=== PATIENT | male | born 1965 ===

== ENCOUNTER 2025-01-21 15:35 | Emergency (ER) | payer OTHER, SELFPAY ==
--- OUTSIDE RECORDS SUMMARY | 2025-01-21 15:37 | XMS_ITS | Clinical Summary ---
Author Organization 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 Nov 2024: Dr. Cabral did left knee cortisone injection. Elevated blood pressure read ing without diagnosis of hypertension 06/13/2018 Headache Overview (03/22/2021): MRI normal 06/30/2020. Saw neurologist. Overweight Resolved Problems Problem Noted Date Diagnosed Date Resolved Date Routine adult health maintenance 01/26/2016 03/27/2018 Overview (01/26/2016): Colonoscopy 12/2015 hyperplastic polyp repeat in 10 years EXAMINATION, ROUTINE MEDICAL 08/07/1999 03/27/2018 PHARYNGITIS, ACUTE 08/07/1999 8 Encounters Date Type Department Care Team Description 01/12/2025 Orders Only [facility] Scanner 1 scan: (1-Ord) TAREEN DERMATOLOGY, EXCISION , 01/12/2025 01/11/2025 Telephone [facility] [address] [place], [place] [id number] Oren Ledezma MD other (FYI) 12/16/2024 Orders Only [facility] Scanner 1 scan: (1-Ord) TAREEN DERMATOLOGY, RT SUPERIOR FRONTAL SCALP, 12/16/2024 12/16/2024 Orders Only [facility] Scanner 1 scan: (1-Ord) TAREEN DERMATOLOGY, SHAVE BIOPSY, 12/16/2024 12/08/2024 1:25 PM CDT Office Visit [facility] [address] [facility] [address] Bright Cabral MD Musculoskeletal Problem (Follow-up LEFT Knee ~ DOO 05/2024/Review MRI ) 12/07/2024 Travel 11/06/2024 3:30 PM CDT Ancillary Procedure [facility] [address] [facility] [address] 11/06/2024 Travel 11/04/2024 Travel from Last 3 Months Immunizations Immunization Administration Dates Next Due Influenza, IIV3 (Age >=3 years) 04/09/2003 Tdap 12/24/2020,03/11/2014 Family History Medical History Relation Name Comments Diabetes Father Hypertension Father Cancer-colon Neg. 1 Cancer-prostate Neg. 2 Heart Disease Neg. 3 Relation Name Status Comments Father Neg. 1 Neg. 2 Neg. 3 Social History Tobacco Use Types Packs/Day Years Used Date Smoking Tobacco: Never Smokeless Tobacco: Never Tobacco Cessation:Counseling Given: Yes Alcohol Use Standard Drinks/Week Comments Yes 0 (1 standard drink = 0.6 oz pur e alcohol) 1 beer per week. PHQ-2 Answer Date Recorded PHQ-2 TOTAL SCORE 0 03/22/2021 Social Connections Answer Date Recorded Do you often feel lonely or isolated from those around you? 0 10/19/2024 Financial Resource Strain Answer Date R ecorded Difficulty of Paying Living Expenses 3 10/19/2024 Difficulty of Paying Living Expenses Not on file 10/19/2024 Food Insecurity Answer Date Recorded Do you worry your food will run out before you are able to buy more? 1 10/19/2024 Transportation Needs Answer Date Record ed Does lack of transportation keep you from medica l appointments? 1 10/19/2024 Does lack of transportation keep you from work, meetings or getting things that you need? 1 10/19/2024 Housing Stability Answer Date Recorded What is your housing situation today? 1 10/19/2024 Utilities Answer Date Recorded Do you have trouble paying f or utilities (for example, heat, electricity, water, phone)? 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 Not on file Not on file Not on file Obstetrics History Last Filed Vital Signs Vital Sign Reading Time Taken Comments Blood Pressure 135/95 12/08/2024 1:25 PM CDT Pulse 79 12/08/2024 1:25 PM CDT Temperature 36.8 C (98.3 F) 02/03/2020 3:13 PM CDT Respiratory Rate 16 02/23/2015 10:0 4 AM CDT Oxygen Saturation 98% 12/08/2024 1:25 PM CDT Inhaled Oxygen Concentration - - Weight 105.1 kg (231 lb 12.8 oz) 12/08/2024 1:25 PM CDT Height 184.2 cm (6' 0.5) 09/01/2024 1:57 PM CDT Body Mass Index 31.01 09/01/2024 1:57 PM CDT Plan of Treatment Upcoming Encounters Date Type Department Care Team (Late st Contact Info) Description 02/24/2025 10:30 AM CDT Office Visit [facility] [address] [place] [address] Oren Ledezma MD [address] [place] [address] Health Maintenance Due Date Last Done Comments HIV for age 15-65 1980 Hepatitis B series for 19+ ( 1 of 3 - 19+ 3-dose series) 1984 Pneumococcal series for age 50+ (1 of 1 - PCV) 08/26/2015 Zoster (shingles) series for age 50+ (1 of 2) 08/26/2015 Depression screening for age 12+ 03/22/2022 03/22/2021, 04/01/2019, 03/27/2018, Additional history exists COVID-19 vaccine series ( season) 2024 08/05/2020 Influenza Vaccine (#1) 2024 04/09/2003 BMI (ht and wt on same day) for age 18+ 09/01/2025 09/01/2024, 03/22/2021, 02/03/2020, Additional history exists Colonoscopy through age 75 01/24/2026 01/25/2016, Lipids for age 45-75 03/22/2026 03/22/2021, 04/01/2019, 05/28/2018, Additional history exists Tetanus booster 12/24/2030 12/24/2020, 03/11/2014 RSV vaccine for adults or (1 - 1-dose 75+ series) 2040 Hepatitis C screening for ag e 18-79 Completed 03/22/2021 Procedures Procedure Name Priority Date/Time Associated Diagnosis Comments SCAN-OPERATIVE/PROCE DURE REPORT 01/12/2025 12:00 AM CDT SCAN-PATHOLOGY REPORT 12/16/2024 12:00 AM CDT SCAN-OPERATIVE/PROCE DURE REPORT 12/16/2024 12:00 AM CDT MR KNEE LEFT WO Routine 11/06/2024 4:15 PM CDT Chronic pain of left knee ANTI HCV Routine 03/22/2021 4:12 PM PRE PRESS MANAGER Need for hepatitis C screening test LIPID PANEL W REFLEX MEASURED LDL Routine 03/22/2021 4:12 PM PRE PRESS MANAGER Lipid screening COLONOSCOPY 01/25/2016 9:09 AM CDT from Last 3 Months or Most Recently Relevant to Health Maintenance Results * SCAN-OPERATIVE/PROCEDURE REPORT (01/12/2025 12:00 AM CDT) us Scanner OTHER Final Result * SCAN-OPERATIVE/PROCEDURE REPORT (12/16/2024 12:00 AM CDT) us Scanner OTHER Final Result * SCAN-PATHOLOGY REPORT (12/16/2024 12:00 AM CDT) us Scanner OTHER Final Result * MR KNEE LEFT WO (11/06/2024 4:15 PM CDT) Anatomical Region Laterality Modality KNEE L Magnetic Resonan ce 11/09/2024 11:0 2 AM CDT Impressions 11/09/2024 11:02 AM CDT 1. Jones volume loss in the body of the medial meniscus with displaced flap fragment extending into the medial tibial gutter. 2. Gbgo-ai-pxixynny chondromalacia centrally in the medial compartment and focal mild chondromalacia in the far posterior aspect of the medial femoral condyle. 3. Mild chondromalacia posteriorly in the lateral compartment. 4. Small undermining full-thickness chondral fissure in the medial patellar facet with additional dyrs-rn-cwturjfo chondromalacia. 5. Small knee joint effusion with minimal synovitis. Moderate sized partially ruptured popliteal cyst. 6. Benign bone island in the medial femoral condyle. Dictated by Pablo Sullivan MD @ 11/09/2024 11:02:06 AM (Electronically Signed) Narrative 11/09/2024 11:02 AM CDT For Patients: As a result of the Century Cures Act, medical imaging exams and procedure reports are released immediately into your electronic medical record. You may view this report before your referring provider. If you have questions, please contact your health care provider. EXAM: MRI OF THE LEFT KNEE, WITHOUT CONTRAST CLINICAL INDICATION: Four-month history of knee pain most prominent medially. Intermittent catching and popping sensation. COMPARISON PLAIN FILMS: 09/01/2024. COMPARISON CROSS-SECTIONAL IMAGING STUDIES: None available at time of interpretation. TECHNICAL: Axial, sagittal and coronal T1, PD, PD FS and T2 FS images. Knee coil. FINDINGS: MEDIAL COMPARTMENT: Medial Meniscus: Tearing and volume loss in the free edge and tibial articular surface of the body of the medial meniscus with small displaced flap fragment extending into the medial tibial gutter. Loss of hoop stress with peripheral extrusion of the body of the medial meniscus. Articular Cartilage: Moderate to near full-thickness chondral thinning centrally in the medial femoral condyle (grade 3). Mild chondral fraying and thinning centrally in the tibia (grade 2). Mild chondral fissuring in the far posterior aspect of the medial femoral condyle (grade 2). - LATERAL COMPARTMENT: Lateral Meniscus: Normal size and morphology without tear. Articular Cartilage: Mild chondral fissuring posteriorly in the lateral compartment (grade 2). - PATELLOFEMORAL COMPARTMENT: Articular Cartilage: 0.3 cm full-thickness undermining chondral fissure in the medial patellar facet with subchondral edema and subchondral cystic change (grade 4). Additional mild to moderate chondral thinning and fissuring in the medial patellar facet (grade 2-3). The trochlear groove articular cartilage is intact. - CRUCIATE LIGAMENTS: Anterior Cruciate Ligament: Normal. Posterior Cruciate Ligament: Normal. - MEDIAL COLLATERAL LIGAMENT AND POSTEROMEDIAL CORNER COMPLEX: Medial Collateral Ligament: Normal. Medial Head of the Gastrocnemius and Semimembranosus Tendons: Normal. - LATERAL COLLATERAL LIGAMENT COMPLEX AND POSTEROLATERAL CORNER COMPLEX: Fibular Collateral Ligament: Normal. Distal Biceps Femoris Tendon Complex: Normal. Iliotibial Band: Normal. Popliteus Tendon: Normal. Posterolateral Corner Capsule: Normal. - EXTENSOR MECHANISM: Distal Quadriceps Tendon: Normal. Patellar Tendon: Normal. Medial Patellar Retinaculum and Medial Patellofemoral Ligament: Normal. Lateral Patellar Retinaculum: Normal. Normal patellar alignment. No patella sascha. Normal trochlear depth. Normal lateral trochlear inclination. - JOINT SPACE: Effusion: Small knee joint effusion. Minimal synovitis. Moderate-sized partially ruptured popliteal cyst. Joint Bodies: None seen. - OSSEOUS STRUCTURES: Benign bone island in the medial femoral condyle. No marrow infiltrating process. - PERIARTICULAR SOFT TISSUES: Periarticular Cysts or Ganglia: None. Bursae: No prepatellar, superficial infrapatellar, deep infrapatellar, pes anserinus or semimembranosus/MCL bursitis. Musculature: No muscle atrophy or muscle edema. Subcutaneous and Soft Tissues: Small area of artifact near the lateral aspect of the tibial tubercle is likely due to a tiny metallic foreign body not visible radiographically. Neurovascular Structures: Normal. Procedure Note Pablo Sullivan MD - 11/09/2024 For Patients: As a result of the Century Cures Act, medical imagingexams and procedure reports are released immediately into your electronicmedical record. You may view this report before your referring provider.If you have questions, please contact your health care provider. EXAM: MRI OF THE LEFT KNEE, WITHOUT CONTRAST CLINICAL INDICATION: Four-month history of knee pain most prominent medially. Intermittentcatching and popping sensation. COMPARISON PLAIN FILMS: 09/01/2024. COMPARISON CROSS-SECTIONAL IMAGING STUDIES: None available at time of interpretation. TECHNICAL: Axial, sagittal and coronal T1, PD, PD FS and T2 FS images. Knee coil. FINDINGS: MEDIAL COMPARTMENT: Medial Meniscus: Tearing and volume loss in the free edge and tibialarticular surface of the body of the medial meniscus with small displacedflap fragment extending into the medial tibial gutter. Loss of hoop stresswith peripheral extrusion of the body of the medial meniscus. Articular Cartilage: Moderate to near full-thickness chondral thinningcentrally in the medial femoral condyle (grade 3). Mild chondral frayingand thinning centrally in the tibia (grade 2). Mild chondral fissuring inthe far posterior aspect of the medial femoral condyle (grade 2). - LATERAL COMPARTMENT: Lateral Meniscus: Normal size and morphology without tear. Articular Cartilage: Mild chondral fissuring posteriorly in the lateralcompartment (grade 2). - PATELLOFEMORAL COMPARTMENT: Articular Cartilage: 0.3 cm full-thickness undermining chondral fissure inthe medial patellar facet with subchondral edema and subchondral cysticchange (grade 4). Additional mild to moderate chondral thinning andfissuring in the medial patellar facet (grade 2-3). The trochlear groovearticular cartilage is intact. - CRUCIATE LIGAMENTS: Anterior Cruciate Ligament: Normal. Posterior Cruciate Ligament: Normal. - MEDIAL COLLATERAL LIGAMENT AND POSTEROMEDIAL CORNER COMPLEX: Medial Collateral Ligament: Normal. Medial Head of the Gastrocnemius and Semimembranosus Tendons: Normal. - LATERAL COLLATERAL LIGAMENT COMPLEX AND POSTEROLATERAL CORNER COMPLEX: Fibular Collateral Ligament: Normal. Distal Biceps Femoris Tendon Complex: Normal. Iliotibial Band: Normal. Popliteus Tendon: Normal. Posterolateral Corner Capsule: Normal. - EXTENSOR MECHANISM: Distal Quadriceps Tendon: Normal. Patellar Tendon: Normal. Medial Patellar Retinaculum and Medial Patellofemoral Ligament: Normal. Lateral Patellar Retinaculum: Normal. Normal patellar alignment. No patella sascha. Normal trochlear depth.Normal lateral trochlear inclination. - JOINT SPACE: Effusion: Small knee joint effusion. Minimal synovitis. Moderate-sizedpartially ruptured popliteal cyst. Joint Bodies: None seen. - OSSEOUS STRUCTURES: Benign bone island in the medial femoral condyle. No marrow infiltratingprocess. - PERIARTICULAR SOFT TISSUES: Periarticular Cysts or Ganglia: None. Bursae: No prepatellar, superficial infrapatellar, deep infrapatellar, pesanserinus or semimembranosus/MCL bursitis. Musculature: No muscle atrophy or muscle edema. Subcutaneous and Soft Tissues: Small area of artifact near the lateralaspect of the tibial tubercle is likely due to a tiny metallic foreignbody not visible radiographically. Neurovascular Structures: Normal. IMPRESSION: 1. Jones volume loss in the body of the medial meniscus with displacedflap fragment extending into the medial tibial gutter. 2. Qxgd-ay-ncdqfkhf chondromalacia centrally in the medial compartment andfocal mild chondromalacia in the far posterior aspect of the medialfemoral condyle. 3. Mild chondromalacia posteriorly in the lateral compartment. 4. Small undermining full-thickness chondral fissure in the medialpatellar facet with additional vfjw-bi-mddtflgo chondromalacia. 5. Small knee joint effusion with minimal synovitis. Moderate sizedpartially ruptured popliteal cyst. 6. Benign bone island in the medial femoral condyle. Dictated by Pablo Sullivan MD @ 11/09/2024 11:02:06 AM (Electronically Signed) us Bright Cabral MD MR Final Res ult * LIPID PANEL W REFLEX MEASURED LDL (03/22/2021 4:12 PM PRE PRESS MANAGER) CHOLESTEROL,TOTAL 198 100 - 199 mg/dL 03/22/2021 10:43 PM PRE PRESS MANAGER [facility] TRIGLYCERIDES 58 <150 mg/dL 03/22/2021 10:43 PM PRE PRESS MANAGER [facility] HDL CHOLESTEROL 62 >40 mg/dL 10:43 PM PRE PRESS MANAGER [facility] NON-HDL CHOLESTEROL 136 <145 mg/dl 03/22/2021 10:43 PM PRE PRESS MANAGER [facility] CHOL/HDL RATIO 3.19 <4.50 03/22/2021 10:43 PM PRE PRESS MANAGER [facility] LDL CHOLESTEROL 124 <=130 mg/dL 03/22/2021 10:43 PM PRE PRESS MANAGER [facility] VLDL CHOLESTEROL 12 <=30 mg/dL 03/22/2021 10:43 PM PRE PRESS MANAGER [facility] PROVIDER ORDERED STATUS RANDOM 03/22/2021 10:43 PM PRE PRESS MANAGER [facility] Blood BLOOD SPECIMEN / Unknown Venipuncture / Unknown 03/22/2021 4:12 PM PRE PRESS MANAGER 03/22/2021 4:13 PM PRE PRESS MANAGER us Oren Ledezma MD CHEMISTRY Final Result [facility] [address] [place] [address], [place] * ANTI HCV (03/22/2021 4:12 PM PRE PRESS MANAGER) HEPATITIS C ANTIBODY Non-React ismael Non-React ismael 03/22/2021 10:56 PM PRE PRESS MANAGER [facility] Comment:Antibodies to HCV no t detected; does not exclude the possibility of exposure to HCV. Blood BLOOD SPECIMEN / Unknown Venipuncture / Unknown 03/22/2021 4:12 PM PRE PRESS MANAGER 03/22/2021 4:13 PM PRE PRESS MANAGER us Oren Ledezma MD SEND OUTS Final Result [facility] [address] [place] [address], [place] * COLONOSCOPY (01/25/2016 9:09 AM CDT) 01/25/2016 9:09 AM CDT Narrative 01/25/2016 9:09 AM CDT Patient Name: Ramon Alvarenga Date: 01/25/2016 Gender: Male Date of : 1965 Admit Type: Outpatient Procedure: Colonoscopy Proceduralist: Diogenes Gee MD Indications/Pre-Op Diagnosis: Screening for colorectal malignant neoplasm, This is the patient's first colonoscopy Medications: Fentanyl 100 micrograms IV, Midazolam 4 mg IV, The level of sedation administered was moderate Procedure Description: The patient had risks, benefits and alternatives explained to and gave informed consent. The patient had a stable cardiopulmonary status and judged an adequate candidate for conscious sedation. The PCF-Q290AL [id number] was passed through the anus and advanced to the cecum, identified by appendiceal orifice and ileocecal valve. The colonoscopy was performed without difficulty. The patient tolerated the procedure well. The quality of the bowel preparation was excellent. The ileocecal valve, appendiceal orifice, and rectum were photographed. Complications: No immediate complications. Estimated Blood Loss & Specimen: Estimated blood loss: none. Specimen collected - Yes and sent to Laboratory Findings: The perianal and digital rectal examinations were normal. Two sessile polyps were found in the sigmoid colon. The polyps were 2 mm in size. These polyps were removed with a cold snare. Resection and retrieval were complete. No additional abnormalities were found on retroflexion. Impressions/Post-Op Diagnosis: - Two 2 mm polyps in the sigmoid colon, removed with a cold snare. Resected and retrieved. Recommendation: - Patient has a contact number available for emergencies. The signs and symptoms of potential delayed complications were discussed with the patient. Return to normal activities tomorrow. Written discharge instructions were provided to the patient. - Resume previous diet. - Continue present medications. - Await pathology results. - Repeat colonoscopy is recommended. The colonoscopy date will be determined after pathology results from today's exam become available for review. Diogenes Gee MD 01/25/2016 9:50:23 AM This report has been signed electronically. Note Initiated On: 01/25/2016 9:09 AM Procedure Code(s): --- Professional --- 36945, Colonoscopy, flexible; with removal of tumor(s), polyp(s), or other lesion(s) by snare technique Diagnosis Code(s): --- Professional --- Z12.11, Encounter for screening for malignant neoplasm of colon D12.5, Benign neoplasm of sigmoid colon CPT copyright 2015 [employer]. All rights reserved. The codes documented in this report are preliminary and upon batch analyst review may be revised to meet current compliance requirements. Scope In: 9:19:28 AM Scope Withdrawal Time 0 hours 15 minutes 9 seconds Scope Out: 9:40:55 AM Procedure Note Diogenes Gee MD - 01/25/2016 9:50 AM CDT Patient Name: Ramon Laurent Procedure Date: 01/25/2016 Gender: Male Date of : 1965 Admit Type: Outpatient Procedure: Colonoscopy Proceduralist: Diogenes Gee MD Indications/Pre-Op Diagnosis: Screening for colorectal malignant neoplasm, This is the patient's first colonoscopy Medications: Fentanyl 100 micrograms IV, Midazolam 4 mgIV, The level of sedation administered wasmoderate Procedure Description: The patient had risks, benefits and alternatives explained to andgave informed consent. The patient had a stable cardiopulmonary status and judged an adequate candidate for conscious sedation. The [facility]-Q290AL [id number] was passed through the anus and advanced tothe cecum, identified by appendiceal orifice and ileocecal valve. The colonoscopy was performed without difficulty. The patient toleratedthe procedure well. The quality of the bowel preparation was excellent.The ileocecal valve, appendiceal orifice, and rectum were photographed. Complications: No immediate complications. Estimated Blood Loss & Specimen: Estimated blood loss: none. Specimen collected - Yes and sent to Laboratory Findings: The perianal and digital rectal examinations were normal. Two sessile polyps were found in the sigmoid colon. The polyps were 2mm in size. These polyps were removed with a cold snare. Resection and retrieval were complete. No additional abnormalities were found on retroflexion. Impressions/Post-Op Diagnosis: - Two 2 mm polyps in the sigmoid colon, removed with a cold snare. Resected and retrieved. Recommendation: - Patient has a contact number available for emergencies. The signsand symptoms of potential delayed complications were discussed with the patient. Return to normal activities tomorrow. Written discharge instructions were provided to the patient. - Resume previous diet. - Continue present medications. - Await pathology results. - Repeat colonoscopy is recommended. The colonoscopy date will be determined after pathology results from today's exam become available for review. Diogenes Gee MD 01/25/2016 9:50:23 AM This report has been signed electronically. Note Initiated On: 01/25/2016 9:09 AM Procedure Code(s): --- Professional --- 97499, Colonoscopy, flexible; with removalof tumor(s), polyp(s), or other lesion(s) bysnare technique Diagnosis Code(s): --- Professional --- Z12.11, Encounter for screening formalignant neoplasm of colon D12.5, Benign neoplasm of sigmoid colon CPT copyright 2015 [employer]. All rights reserved. The codes documented in this report are preliminary and upon batch analyst reviewmay be revised to meet current compliance requirements. Scope In: 9:19:28 AM Scope Withdrawal Time 0 hours 15 minutes 9 seconds Scope Out: 9:40:55 AM us Diogenes Gee MD PROCEDURE ORD Final Res ult from Last 3 Months or Most Recently Relevant to Health Maintenance Insurance [employer] Care Teams Managing Jeweler Relationship Specialty Start Date End Date Oren Ledezma MD [address] [place] [address] PCP - General 11/23/05
[2025-01-21 15:41] VITALS: BP 152/92; PULSE 80; RESP 20; TEMP 36.5; O2SAT 97; BMI 30.6
--- NOTE | 2025-01-21 16:10 | ED_ITS ---
HPI - General Adult General Chief complaint: Laceration/Wound Stated complaint: R pointer finger cut off with saw Time Seen by Provider: 01/21/25 15:56 Source: patient Mode of arrival: ambulatory Limitations: no limitations History of Present Illness HPI narrative: 59-year-old male presenting today with avulsion of the finger tip of the right pointer finger caused by a mandoline when he was cutting vegetables today. Denies other injury. Last tetanus was in 2020. Related Data Home Medications ?Medication ?Instructions ?Recorded ?Confirmed No Known Home Medications 01/21/2512/29 Allergies Allergy/AdvReac Type Severity Reaction Status Date / Time No Known Drug Allergies Allergy Verified 01/21/25 15:39 Review of Systems Status of ROS: Reports: 6 or more systems reviewed and unremarkable except as noted in History and below Exam Narrative: Exam Narrative: Well-nourished well-developed patient in no acute distress. Alert and oriented. Answers questions appropriately. Mood and affect are appropriate. Thoughts are goal oriented and rational. No tangential or magical thinking noted. Patient speaks in full sentences without needing to catch his breath. Patient does not appear ill or toxic. HEENT: Normocephalic atraumatic. Extraocular muscles are intact. Conjunctivae are moist without any icterus noted. Moist mucous membranes. Extremities: Patient has a clean avulsion of the tip of the pointer finger on the right side. Does not involve the nail. There is oozing present, no arterial bleed. No bone visible. Const: Vital Signs, click to edit/add: Vital Signs - 24 hr 01/21/25 15:41 Temperature 97.7 F Pulse Rate [Pulse Oximeter] 80 Respiratory Rate 20 Blood Pressure [Ri ght Upper Arm] 152/92 H Pulse Oximetry 97 Oxygen Delivery Me thod Room Air Course Course ED Course: Wound was cleaned. Surgical foam was applied and a pressure dressing applied. Vital Signs Vital signs: Initial Vital Signs Temperature 97.7 F 01/21/25 15:41 Temperature Source Temporal Artery Scan 01/21/25 15:41 Pulse Rate 80 01/21/25 15:41 Respiratory Rate 20 01/21/25 15:41 Blood Pressure 152/92 H 01/21/25 15:41 Blood Pressure Mean 112 H 01/21/25 15:41 Pulse Oximetry 97 01/21/25 15:41 Oxygen Delivery Method Room Air 01/21/25 15:41 Vital Signs Temperature 97.7 F 01/21/25 15:41 Pulse Rate 80 01/21/25 15:41 Respiratory Rate 20 01/21/25 15:41 Blood Pressure 152/92 H 01/21/25 15:41 Pulse Oximetry 97 01/21/25 15:41 Oxygen Delivery Method Room Air 01/21/25 15:41 Temperature 97.7 F 01/21/25 15:41 Pulse Rate 80 01/21/25 15:41 Respiratory Rate 20 01/21/25 15:41 Blood Pressure 152/92 H 01/21/25 15:41 Pulse Oximetry 97 01/21/25 15:41 Oxygen Delivery Method Room Air 01/21/25 15:41 Medical Decision Making MDM Narrative Medical decision making narrative: Avulsion of the tip of the finger-not amicable to suturing. Treated per above. Discharge Plan Discharge Clinical Impression: Avulsion of skin Patient Disposition: Home, Self-Care Condition: Stable Additional Instructions: Keep wound clean and dry. Do not soak such as taking baths, swimming or doing dishes. Change dressing once every 24 hours. Watch for signs and symptoms of infection including increasing redness of the area, purulent drainage, or fever. If this occurs follow-up right away with your doctor or return to the ER. Prescriptions: No Action No Known Home Medications Follow Up/Referrals: Oren Ledezma MD [Primary Care Provider, Family Practice] Stand Alone Forms: [facility] Info Instructions
== END 2025-01-21 16:38 | disposition home or self-care (01) ==
LOC: ED 16:22
PROVIDERS: Emergency Provider Family Medicine; PCP Family Medicine
DX: S61.300A Unspecified open wound of right index finger with damage to nail, initial encounter (principal); W26.0XXA Contact with knife, initial encounter
CPT/HCPCS: 99282; 99284